=== PATIENT | female | born 1980 | race Caucasian/White ===

== ENCOUNTER 2016-12-31 12:13 | Day surgery (SDC) | payer OTHER ==
[2016-12-31] VITALS (8 sets, daily range): BP systolic 107–146; BP diastolic 74–88; PULSE 63–112; RESP 12–20; O2SAT 96–100
[~2016-12-31] VITALS: Ht 165.1 cm; Wt 112.8 kg
[2016-12-31] MEDS ORDERED: Rocuronium 10 mg/mL 5 mL Inj ONE (12:14)
[2016-12-31] MEDS ORDERED: Phenylephrine/NS 100 mCg/mL 10 mL Syringe IVPUSH ONE (12:14)
[2016-12-31] MEDS ORDERED: Glycopyrrolate 0.2 MG/ML 1mL Inj ONE (12:14)
[2016-12-31] MEDS ORDERED: fentaNYL-PF 50 mCg/mL 2 mL Inj ONE (12:14)
[2016-12-31] MEDS ORDERED: Ondansetron 2 mg/mL 2 mL Inj ONE (12:14)
[2016-12-31] MEDS ORDERED: Dexamethasone 4 mg/mL Inj ONE (12:14)
[2016-12-31] MEDS ORDERED: Propofol 10 mg/mL 20 mL Inj ONE (12:14)
[2016-12-31] MEDS ORDERED: HYDROmorphone 1 mg/mL Inj ONE (12:14)
[2016-12-31] MEDS ORDERED: Polyethylene Glycol (PEG) 17 Gm Powder PO PRN (12:55)
[2016-12-31] MEDS ORDERED: Alum-Mag Hydrox-Simeth 30 mL Suspension PO PRN (12:55)
[2016-12-31] MEDS ORDERED: HYDROcodone-APAP 5-325 mg Tablet PO PRN (12:55)
[2016-12-31] MEDS ORDERED: Ondansetron 2 mg/mL 2 mL Inj IVPUSH PRN ×3 (12:55→17:30)
--- NOTE | 2016-12-31 12:58 | PCM.HPMED ---
Subjective Date of Service Dec 31, 2016 Primary Provider: Admitting Physician: Vanessa Bullock DO Primary Care Physician: [facility]-R[facility] Roper Attending Physician: Vanessa Bullock DO Admit Status: Direct Admit Chief Complaint: RUQ Pain History of Present Illness: 36 yo WF with no particular PMH went to yesterday with abdominal pain, got lab work, that is remarkable for WBC=13.1, notmal LFT. She went back there this AM to get an abd US that showed concern for cholelithiasis, CBD widening 8 mm, thickened galbladder wall. she has no fevers or chills, she is endorsing anorexia, nausea but no vomiting. She says that she can not related pain to eating but has not eaten since midnight, had sips of water. She has never had pain like this before. She had a normal bowel movement yesterday a.m. she denies hematochezia and hematemesis At the urgent care, she has received labs on 12/30.. (Her left ear fairly unremarkable, no elevation of lipase was noted. She did have an elevated white count of 13.1 ultrasound of abdomen on 12/31 showed 8 mm of common bile duct, thickened gallbladder wall, multiple gallbladder stones, also indicated concern for acute cholecystitis. Upon arrival to the floor Vital signs signs are 36.6 heart rate 63 respirations 20 blood pressure was 136/84 oxygen saturation 99% on room air Interim patient is not experiencing much pain or fevers or chills, she is cooperative with interview and examination Review of Systems: Gen.: No recent weight gain or weight loss patient has not been having fevers and malaise Eyes: no visual disturbances or blurring vision HEENT: No nose/throat drainage, no pain in ears or throat, no hearing loss Lymph: No lymph nodes noted Cardiac: No chest pain, orthopnea, PND, palpitations , pedal edema or dyspnea on exertion Pulmonary: Denies wheezing or bringing up of sputum denies dyspnea and cough, denies left-sided chest pain GI: No anorexia nausea vomiting blood or black in the stool : no dysuria hematuria urinary frequency or decrease in urine output Musculoskeletal: Joint swelling no joint pain no new muscle aches or back pain Neuro: No syncope, seizures no loss of consciousness no new focal weakness, numbness or tingling Psychiatric: New new anxiety insomnia or depression Endocrine: No new heat or cold intolerances polyuria or polydipsia Hematology: No lymphadenopathy or easy bleeding or bruising noted skin: No new rashes, or stasis dermatitis Complete review of systems performed, pertinent positives and negatives per history of present illness and as above, all other systems reviewed and are negative. Allergies Coded Allergies: Penicillins (Verified Allergy, Intermediate, Rash, 12/31/16) amoxicillin (Verified Allergy, Mild, Rash, 12/31/16) Uncoded Allergies: Sulfa (Allergy, Intermediate, Rash,Itching,, 12/31/16) Home Medications She takes no home medications PMH None Surgical History Family History Both parents are healthy Social History Occupation: social [employer] Hx Alcohol Use: Yes ("Once in a while") Hx Substance Use: No Hx Tobacco Use: No Living Arrangement: with Family (lives in [place] with and one child) Exam Vital Signs Vital Sign - Last Date Time Temp Pulse Resp B/P Pulse Ox O2 Delivery O2 Flow Rate FiO2 12/31/16 12:21 36.6 63 20 126/84 99 Room Air Assessment & Plan This is a 36-year-old female whose BMI match his morbid obesity presenting today from urgent care as a direct admit for acute cholecystitis as noted on her abdominal ultrasound Assessment #1 acute cholecystitis, present on admission -- Started her on Invanz antibiotics -- Repeat CBC and comp, lipase and amylase are ordered as well as GGT -- Gen. surgery and GI were consulted -- MRCP is ordered -- Dr. Russ Corrigan has seen the patient reviewed the labs as well as MRCP, decided to take patient for cholecystectomy this p.m. with intraoperative cholangiogram -- Dr. López from GI was consulted, we will await the recommendations -- Morphine IV for pain control as needed -- Zofran for nausea control -- Normal saline 100 mL/h, nothing by mouth diet Assessment #2 nausea, acute present on admission -- Zofran IV when necessary Assessment #3 morbid obesity -- We will reimbursement counselor patient on the importance of lifestyle changes Assessment #4 , and bile duct dilation, present on admission -- Discussed this with Dr. Russ Corrigan who feels that she is just at the upper limit of CBD, she does not have a stone Pain Evaluation: Adequate Pain Control Resuscitation Status: CPR: Attempt Resuscitation Time spent 45 minutes Angelica Evans DO Dec 31, 2016 12:58
--- NOTE | 2016-12-31 13:52 | NUR ---
Admit to [facility] Pt arrived as direct admit to [facility] at 1215 hrs. Pt alert and oriented x 3. VSS. Lab came to draw blood. Pt taken to MRI for MRCP. Pt NPO. Awaiting surgical and GI consults and new orders. Family in room at the bedside.
[2016-12-31 13:53] LABS: Mean Corpuscular Volume 87.5 fL (81-100)
[2016-12-31 13:54] LABS: BASOPHILS % (AUTO) 0.5 % (0-3); MONOCYTES % (AUTO) 6.4 % (4-12); NEUTROPHILS % (AUTO) 59.5 % (40-74); Platelet Count 315 bil/L (150-400)
[2016-12-31 14:16] LABS: APPEARANCE,URINE HAZY (CLEAR,HAZY); COLOR,URINE DARK YELLOW (YELLOW); OCCULT BLOOD,URINE LARGE (NEGATIVE); PH,URINE 7.5 (5.0-8.0); UROBILINOGEN,URINE NORMAL (NORMAL)
--- NOTE | 2016-12-31 14:42 | DRSVH ---
PROCEDURE: MR ABDOMEN MRCP INDICATIONS: CBD stone TECHNIQUE: Coronal HASTE through the abdomen, axial 2-D FLASH in- and [id number], and breath-hold T2 FSE with fat saturation through the biliary system and pancreas. Oblique coronal and axial thin-slice HASTE, radial thick-slab HASTE centered on the extrahepatic bile ducts. Intravenous secretin: Not requested. COMPARISON: [facility] Ultrasound, US, US ABDOMEN, 12/31/2016, 9:33. FINDINGS: Image quality: Excellent. Pancreas and biliary system: Intra- and extra-hepatic biliary ducts are non dilated. Pancreas is no rmal in morphology, without adjacent soft tissue edema. Pancreatic duct is normal in caliber. Possib le pancreas divisum. Gallbladder contains multiple small calculi, as seen by ultrasound. Gallbladder wall is thickened. There is moderate surrounding edema as well as a small amount of pericholecystic f luid. Other solid organs: Liver and spleen are normal in size. No adrenal nodules. Both kidneys are norm al in size, without hydronephrosis. Nodes and vessels: No retroperitoneal or mesenteric adenopathy by size criteria. Aorta and inferior vena cava are normal in size. Bowel and peritoneum: Unenhanced bowel loops are normal in caliber. No free fluid. Lung bases: No basal pleural effusions. Heart size is normal. Bones and soft tissues: No ventral hernias. Bone marrow is of normal overall signal. IMPRESSION: 1. Cholelithiasis and cholecystitis. 2. No choledocholithiasis. 3. Findings suggestive of pancreas divisum. Dictated by: Monica Corona M.D. on 12/31/2016 at 14:38 Approved by: Monica Corona M.D. on 12/31/2016 at 14:40
[2016-12-31] MEDS: D5 0.45% NaCl + KCl 20 mEq/L 1,000 ML IV SCH ×2 (14:54→22:54)
--- NOTE | 2016-12-31 15:13 | CONS ---
[address] [address] CONSULTATION REPORT PATIENT: SHELIA JENNINGS : 1980 MR#: [id number] ADMIT: 12/31/2016 JOB ID: [id number] DATE OF SERVICE: 12/31/2016 REQUESTED BY: Angelica Evans DO REASON FOR CONSULTATION: The patient seen for decision to operate. HISTORY OF PRESENT ILLNESS: A 36-year-old female, who had onset of abdominal pain which radiates into her back, three days ago. Her pain is actually improved compared to yesterday. She went to Urgent Care yesterday. Yesterday she had a normal lipase and normal liver functions. Today, she had an abdominal ultrasound that showed gallstones. The gallbladder wall was mildly thickened. There was a positive sonographic Laboy sign and possibly common duct stones based on a common bile duct of 8 mm. She was admitted from Urgent Care and Dr. Evans asked me to see her in consultation. Dr. Evans obtained an MRCP that was normal. Subsequent to that, her liver functions and lipase came back today also normal. She has had a previous section. No other abdominal operations. She has never had similar symptoms prior to three days ago. There is no family history of gallstones. PAST MEDICAL HISTORY/ILLNESSES: Obesity. OPERATIONS: section, 11 years ago. MEDICATIONS: At home, none. ALLERGIES: 1. PENICILLINS. 2. SULFA. HABITS: Tobacco: None. Alcohol: Occasional. SOCIAL HISTORY: . She is accompanied by her , Brandon, and their son. She works at [employer]. FAMILY HISTORY: Negative for gallstones. Positive for kidney stones. REVIEW OF SYSTEMS: She denies nausea or vomiting, jaundice, acholic stools, dark urine. PHYSICAL EXAMINATION: Very pleasant, over-nourished, no distress. BMI 41. Temperature 36.6, brachial blood pressure 126/84, pulse 63, respiratory rate 20, O2 sat room air 98%. HEENT: PERRLA, EOMI no scleral icterus. Neck: No appreciable masses. Trachea midline. Lungs: Clear. Cardiac exam: Regular rhythm. No murmurs or gallops appreciated. Abdomen: Over-nourished. She has right upper quadrant tenderness. No other abdominal tenderness except for very mild left upper and left lower quadrant tenderness that really is referred to the right upper quadrant. No peritoneal signs. Extremities: No edema. Skin: Nonjaundiced. No anterior abdominal wall rashes. Neurologic exam: Appropriate affect. No obvious cranial nerve deficits. Moves all extremities. Gait not tested. LABORATORY RESULTS: White blood cell count 9.3, hematocrit is 39.3, platelet count 315,000. Electrolytes are normal. Creatinine 0.6, glucose 96. AST 13, ALT 8, alkaline phosphatase 20, total bilirubin 0.7 and lipase is 28. IMAGING DATA: Ultrasound from today: See above. MRCP from today shows cholelithiasis and cholecystitis, no choledocholithiasis and findings consistent with pancreatic divisum. IMPRESSION: Acute right upper quadrant pain consistent with acute calculous cholecystitis without evidence of choledocholithiasis or pancreatitis. I discussed options with the patient and her , I have recommended proceeding with a laparoscopic cholecystectomy and cholangiograms, possible open cholecystectomy. I discussed the natural history of gallstones. I discussed complications of gallstones untreated but also potential complications of the operation including bleeding, bile leak, bile ductal injury, and postoperative diarrhea. I discussed typical laparoscopic cholecystectomy and typical recovery. I have recommended that we proceed today. She has accepted this advice and informed consent is obtained. She had no further questions. The patient seen for decision to operate. cc: Ananya Hart MD
[2016-12-31] MEDS ORDERED: Lactated Ringer's 500 ML IV PRN (16:07)
[2016-12-31] MEDS ORDERED: Lactated Ringer's 1,000 ML IV SCH (16:07)
--- NOTE | 2016-12-31 16:07 | PCM.HPANE ---
Patient Data Date of Service: Dec 31, 2016 Surgeon Admitting Provider:Vanessa Bullock DO Attending Provider:Vanessa Bullock DO Primary Care Physician:[facility] Roper Other Provider: Reason for Visit Cholecystitis Ht/WT & BMI Height (Feet): 5 Height (Inches): 5.00 Weight (Kilograms): 112.800 Body Mass Index 41.43 Allergies Coded Allergies: Penicillins (Verified Allergy, Intermediate, Rash, 12/31/16) amoxicillin (Verified Allergy, Mild, Rash, 12/31/16) Uncoded Allergies: Sulfa (Allergy, Intermediate, Rash,Itching,, 12/31/16) Past Anesthesia History Anesthesia History: Denies:: Anesthesia Reactions, Fam Anesthesia Reaction Diabetes History Hx Diabetes?: No MRSA MRSA: No Medications Hypertension Medication: No No Active Prescriptions or Reported Meds History History of ENT Problems?: No HEENT History: Denies:: Abnormal Airway Denture Type: None Teeth Condition: Within Normal Limits Hx of Heart Problems?: No Cardiovascular History: Denies:: Hypertension Hx of Respiratory Problem?: No Respiratory History: Denies:: Asthma Hx Neurologic Problems?: No Hx of GI Problems?: No Hx of Problems?: No Female Hx: Denies:: Currently Endometriosis Pelvic Inflammatory Problems with Breasts? Hx Musculoskeletal Problems?: No Hx of Psycho/Social Problems?: No Hx Surgeries?: Yes (c section, tooth pulled ) Hx Any Other Health Problems?: Yes Other History: Positive for:: Hospitalization Denies:: Cancer Thyroid Disease History Blood Transfusions: Positive for:: Accept Blood Products? Denies:: Blood Transfusions Hx Diabetes: No Hx Alcohol Use: Yes ("Once in a while") Stop/Bang Treated for Sleep Apnea?: No Do You Have a CPAP Machine?: No S-Snoring: Do You Snore Loudly: No T-Tired: feel tired, fatigued: Yes O-Obsered: Observed not breath: No P-Blood Pressure: treated: No B- Body Mass Index > 35 kg/m2: No A- Age over 50: No N- Neck Large Circumference: No G- Gender Male: No BASSEM Total Score: 1 BASSEM Risk Assessment: Low Risk, <3 Yes Risk Assessment Category Category 1A: Patient has history of documented sleep apnea, and HAS NOT received any narcotic, sedative or anesthesia administration during this stay. Category 1B: Patient has history of documented sleep apnea, and HAS received any narcotic , sedative or anesthesia administration during this stay Category 2: Patient has SUSPECTED Obstructive Sleep Apnea, and HAS received any narcotic , sedative or anesthesia administration during this stay. Category 3: Patient has SUSPECTED Obstructive Sleep Apnea and HAS NOT received narcotic, sedative or anesthesia administration during this stay. Category 4: Outpatient in Procedural Areas with known sleep apnea or who screen positive for High Risk via the STOP/BANG questionnaire. Exam Exam Vital Signs Vital Signs Date Time Temp Pulse Resp B/P Pulse Ox O2 Delivery O2 Flow Rate FiO2 12/31/16 12:21 36.6 63 20 126/84 99 Room Air General Appearance: Alert, Oriented X3, Cooperative, No Acute Distress HEENT/AIRWAY: MP 2, Neck Movement (normal), Mouth Opening (normal) Lungs: Clear to Auscultation, Normal Air Movement Heart: Exam Unremarkable, Regular Rate/Rhythm, No Murmurs/Rubs/Gallops Meds/Labs/Diagnostics Admission Meds Current Medications Potassium Chloride/Dextrose/ Sod Cl (Dextrose 5% 0.45% NaCl + KCl 20 mEq/L) 1, 000 ml @ 100 mls/hr Q10H IV Last administered on 12/31/16t 14:54; Start at 12:54 Labs Test 12/31/16 13:33 12/31/16 13:35 12/31/16 14:07 Urine Color Dark yellow (YELLOW) Urine Appearance Hazy (CLEAR,HAZY) Urine pH 7.5 (5.0-8.0) Urine Specific [place] 1.010 (1.003-1.035) Urine Protein Negativemg/dL (NEG,TRACE) Urine Glucose (UA) Negativemg/dL (NEGATIVE) Urine Ketones Negativemg/dL (NEGATIVE) Urine Occult Blood Large (NEGATIVE) Urine Nitrite Negative (NEGATIVE) Urine Bilirubin Negative (NEGATIVE) Urine Urobilinogen Normalmg/dL (NORMAL) Urine Leukocyte Esterase Small (NEGATIVE) Urine RBC 11-50/hpf (0-2) Urine WBC 0-5/hpf (0-5) Urine Epithelial Cells Occasional/hpf (NONE-MOD) Urine Crystals None seen (NONE SEEN) Urine Bacteria Moderate/hpf (NONE-FEW) Urine Hyaline Casts None/lpf (NONE) Urine Granular Casts None seen (NONE SEEN) Urine Waxy Casts None seen (NONE SEEN) Urine Red Blood Cell Casts None seen (NONE SEEN) Urine White Blood Cell Casts None seen (NONE SEEN) Urine Mucus None seen (None Seen) Urine Trichomonas None seen (NONE SEEN) Urine Yeast None (NONE SEEN) Urinalysis Comment None Urine Culture Reflexed Indicated White Blood Count 9.3th/mm3 (3.8-10.1) Red Blood Count 4.49mil/mm3 (3.90-5.20) Hemoglobin 13.0g/dL (12.0-15.6) Hematocrit 39.3% (35.0-46.0) Mean Corpuscular Volume 87.5fL (81-100) Mean Corpuscular Hemoglobin 29.0pg (27.0-35.0) Mean Corpuscular Hemoglobin Concent 33.1% (32.0-37.0) Red Cell Distribution Width 12.5% (12.3-15.4) Platelet Count 315bil/L (150-400) Neutrophils (%) (Auto) 59.5% (40-74) Lymphocytes (%) (Auto) 29.4% (14-46) Monocytes (%) (Auto) 6.4% (4-12) Eosinophils (%) (Auto) 4.0% (0-5) Basophils (%) (Auto) 0.5% (0-3) Sodium Level 139mEq/L (134-144) Potassium Level 3.8mEq/L (3.5-5.2) Chloride Level 100mEq/L (97-108) Carbon Dioxide Level 25mmol/L (18-29) Blood Urea Nitrogen 9mg/dL (6-20) Creatinine 0.62mg/dL (0.57-1.00) Estimat Glomerular Filtration Rate 155mL/min (>59) Glucose Level 96mg/dL (60-99) Calcium Level 9.0mg/dL (8.5-10.1) Total Bilirubin 0.7mg/dL (0.0-1.2) Aspartate Amino Transf (AST/SGOT) 13U/L (0-50) Alanine Aminotransferase (ALT/SGPT) 8U/L (0-32) Alkaline Phosphatase 80U/L (25-150) Total Protein 8.0g/dL (6.4-8.4) Albumin 4.0g/dL (3.4-5.0) Lipase 28U/L (13-60) Plan Impression Patient chart reviewed, patient interviewed and anesthestic plan with risks, benefits, and alternatives discussed, and informed consent obtained. NPO per Anesth. Guidelines: Yes ASA Physical Status: ASA2 Mod Systemic Disease Anesthetic Plan: GA Bene/Risks/Altern/Consents: Yes HP Complete Prior to Induction: Yes Santos Bucio MD Dec 31, 2016 15:57
--- NOTE | 2016-12-31 16:07 | PCM.CHPMED ---
Subjective Date of Service: Dec 31, 2016 Provider requesting consult: Angelica Evans DO Primary Physician: Admitting Physician: Vanessa Bullock DO Primary Care Physician: [facility]-Ruth Roper Attending Physician: Vanessa Bullock DO Chief Complaint: Chief Complaint: Abdominal pain History of Present Illness: Gastroenterology Consult Note Gris Corrigan is a 36-year-old female with no significant past medical history who presents with worsening abdominal pain. Abdominal pain started on Friday and has progressively worsened. Initially pain was located in her epigastric region and has now radiated to her right upper quadrant. Pain is a constant dull ache and is associated with some nausea and anorexia. Patient is not specifically associated with oral intake or fatty foods. She denies any fever, chills, night sweats, headache, shortness of breath, dysuria, hematuria, diarrhea, or black tarry stools. No prior abdominal surgeries although she did have a section approximately 11 years ago. No family history of cholelithiasis. Review of Systems: Comprehensive review of systems was conducted with the patient and found to be negative except as noted above in HPI. PMH Past Medical History None Hx Any Other Health Problems?: NoHx Diabetes: No Surgical History section 11 years ago Home Medications None Allergies: Coded Allergies: Penicillins (Verified Allergy, Intermediate, Rash, 12/31/16) amoxicillin (Verified Allergy, Mild, Rash, 12/31/16) Uncoded Allergies: Sulfa (Allergy, Intermediate, Rash,Itching,, 12/31/16) Family History Family History Grandmother - diabetes and cancer (unknown type) Social History Hx Alcohol Use: Yes ("Once in a while")Hx Substance Use: NoHx Tobacco Use: No Smoking Status: Never Smoker Living Arrangement: with Family Exam Vital Signs Vital Sign - Last Date Time Temp Pulse Resp B/P Pulse Ox O2 Delivery O2 Flow Rate FiO2 12/31/16 12:21 36.6 63 20 126/84 99 Room Air General: Alert, Oriented X3, No Acute Distress Head: Normal Eyes: PERRLA, Scleral Anicteric Nose: Mucous Membr Moist/[place] Mouth: Mucous Membr Moist/[place] Chest & Lungs: Clear to auscultation & percussion Cardiovascular: Regular Rate/Rhythm, No Murmurs/Rubs/Gallops Abdomen: Tender (greatest in the right upper quadrant), Non-distended, No hepatosplenomegaly, Normoactive bowel tones, Obese Musculoskeletal: Unremarkable Extremities: No Edema Neurological: Grossly Neurologically Intact, Cranial Nerves 2-12 Intact Lab and Diagnostics Result Diagram: 12/31/16 1335 X-Rays, CTs and MRIs US ABDOMEN IMPRESSION: 8mm common bile duct caliber, gallbladder wall is abnormally thickened and tenderness. Multiple stones are seen within the gallbladder lumen. Intrahepatic biliary distention is not found, however. Given the constellation of findings there is concern for presence of acute cholecystitis and even possibly a common duct calculus. Surgical consultation may be warranted at this time depending on the clinical status. If clinically desired additional assessment utilizing MR cholangiogram could be performed. Dictated by: Yg Wilcox M.D. on 12/31/2016 at 10:11 Approved by: Yg Wilcox M.D. on 12/31/2016 at 10:13 Assessment & Plan Assessment Gris Corrigan is a 36-year-old female with no significant past medical history who presents with worsening abdominal pain. Abdominal ultrasound showed sonographic Laboy sign and possible common duct stones. Subsequently, MRCP was ordered by Dr. Evans which showed no stones in the common bile duct. Current plan is for patient to go to the OR today for cholecystectomy by Dr. Russ Corrigan. No further recommendations at this time. Thank you for involving us in the patient's care. GI will sign off at this time. If additional questions or concerns please feel be to contact. Problems: Pain Evaluation: Adequate Pain Control Resuscitation Status: CPR: Attempt Resuscitation ILANA GARNER DO Dec 31, 2016 14:09
[2016-12-31] MEDS ORDERED: Lactated Ringer's 1,000 ML IV ONE (16:09)
[2016-12-31] MEDS ORDERED: Labetalol 5 mg/mL 4 mL Inj IV PRN (16:10)
[2016-12-31] MEDS ORDERED: fentaNYL-PF 50 mCg/mL 2 mL Inj IVPUSH PRN (16:10)
[2016-12-31] MEDS ORDERED: EPHEDrine Sulfate 50 mg/mL Inj IVPUSH PRN (16:10)
[2016-12-31] MEDS ORDERED: hydrALAZINE 20 mg/mL Inj IVPUSH PRN (16:10)
[2016-12-31] MEDS ORDERED: MetoCLOpramide 5 mg/mL 2 mL Inj IVPUSH PRN ×2 (16:10→17:30)
[2016-12-31] MEDS ORDERED: Phenylephrine 10,000 mCg/mL Inj IVPUSH PRN (16:10)
[2016-12-31] MEDS ORDERED: Atropine 0.4 mg/mL Inj IVPUSH PRN (16:10)
[2016-12-31] MEDS ORDERED: Dexamethasone 4 mg/mL Inj IVPUSH PRN (16:10)
[2016-12-31] MEDS ORDERED: HYDROmorphone 1 mg/mL Inj IVPUSH PRN (16:10)
--- NOTE | 2016-12-31 16:13 | NUR ---
Pt off unit Pt to O.R. at 1550 hrs.
[2016-12-31] MEDS ORDERED: Bupivacaine-MPF 0.5% 30 mL Inj INFILTRATE ONE (16:15)
[2016-12-31] MEDS: Ertapenem Inj 1,000 MG in 0.9% Sodium Chloride 50 ML IV SCH ×2 (16:30→18:50)
[2016-12-31] MEDS: Dextrose 5% Lactated Ringer's 1,000 ML IV SCH (17:29)
[2016-12-31] MEDS ORDERED: oxyCODONE-Acetamin 5-325 mg Tablet PO PRN (17:30)
[2016-12-31] MEDS ORDERED: HYDROmorphone 0.5 mg/0.5 mL iSecure Syringe IVPUSH PRN (17:30)
--- NOTE | 2016-12-31 17:38 | PCM.ANEP1 ---
Post Anesthesia PACU Phase 1 Assessment Date of Service: Dec 31, 2016 Vital Signs 36.4 147/86 107 29 92% RA Anesthetic Administered: GA Level of Alertness: Sleepy, easy to arouse VARGAS's with Equal Strength: Yes Pain: No Nausea or Vomiting: No CV Function & Hydration Stable: Yes Airway Device: Oxygen Delivery: Room Air Lungs: Clear to Auscultation, Normal Air Movement Dermatome Level: Full Sensation PACU Phase 2 Assessment Complications: No Follow up Care: N/A Patient Instructions Provided: Yes Santos Bucio MD Dec 31, 2016 17:38
--- NOTE | 2016-12-31 18:31 | OP ---
[address] [address] OPERATIVE REPORT PATIENT: SHELIA JENNINGS : 1980 MR#: [id number] ADMIT: 12/31/2016 JOB ID: [id number] DATE OF SURGERY: 12/31/2016 SURGEON: Russ Jennings MD E BUSINESS MANAGER: Brayan Parkinson PA-C PREOPERATIVE DIAGNOSIS(ES): Acute calculous cholecystitis. POSTOPERATIVE DIAGNOSIS(ES): Acute calculous cholecystitis. PROCEDURE: 1. Laparoscopic cholecystectomy and cholangiograms. 2. Intraoperative fluoroscopy with interpretation. INDICATIONS: A 36-year-old woman with a four-day history of abdominal pain. She was found clinically and by imaging studies to have acute calculous cholecystitis. After discussing options with the patient, it was elected to proceed with a laparoscopic cholecystectomy and cholangiograms. FINDINGS: She had acute calculous cholecystitis. There was a stone impacting the cystic duct just below the gallbladder. Cholangiograms were normal. There was no filling defects. No evidence of injury to the bile ducts. Free flow into the duodenum and the common hepatic duct and intrahepatic ducts appeared normal. DESCRIPTION OF PROCEDURE: At the beginning and end of the operation, the SCOAP checklist was completed. General endotracheal anesthetic was induced. She received preoperative antibiotics. She had on pneumatic hose. Using ChloraPrep, she was prepped and draped in usual fashion. All trocar sites were infiltrated with 0.5% plain bupivacaine. An infraumbilical incision was made. The abdominal cavity was entered. A cannula inserted. The abdomen insufflated with CO2. Accessory 5 mm ports were placed under direct visualization in the upper midline and two in the right upper quadrant. The gallbladder was distended but I could elevate it, but very early on with a retractor, the gallbladder was entered and then bile drained out but no stones. Then, the fundus was retracted superiorly and then the infundibulum inferiorly and laterally. With a combination of blunt dissection and using the cautery, the triangle of Calot was dissected, identifying the artery and the cystic duct. A clip could be appreciated and there was a stone right in the cystic duct just below the gallbladder. I was able to place a clip just below that and then do cholangiograms with results as stated above. The cholangiocatheter was removed and two clips were placed proximally in the cystic duct and it was divided. The cystic artery was divided after placing one clip distally and two clips proximally. The gallbladder was dissected away from the liver using cautery. After completing the dissection, it was placed into a specimen bag. The clips on the cystic duct were secure and on the artery were also secure. The subhepatic and right subphrenic spaces were irrigated with saline and aspirated. The cystic duct and artery were reinspected and clips were secure without evidence of bleeding or bile leak. The specimen bag was removed through the umbilical port. Trocars were removed without evidence of bleeding. The umbilical fascial incision was closed with a [id number] suture of 0-Vicryl. The subcutaneous space was irrigated with saline. Skin incisions were closed with subcuticular 4-0 Vicryl. Steri-Strips and Band-Aids were applied. Estimated blood loss 15 cc. There are no apparent complications. The final sponge, needle and instrument counts were announced as correct and the patient was returned to recovery room in stable condition. Critical assistance providing laparoscopic visualization and retraction was provided by Ramiro Parkinson PA-C.
--- NOTE | 2016-12-31 18:34 | NUR ---
Return to [facility] Pt returned from PACU to [facility] at 181. Pt sleepy but oriented x 3. No c/o pain. PIV asymptomatic and patent. VSS. Gave pt ice chips and water. She is tolerating this well. Pt c/o mild itching around her nose but then she fell asleep. Will pass this information onto NOC shift RN Care continues.
[2016-12-31] MEDS ORDERED: 0.9% Sodium Chloride 250 ML ONE (18:44)
--- NOTE | 2016-12-31 18:45 | DRSVH ---
PROCEDURE: X-RAY OPERATIVE CHOLANGIOGRAM ([id number]) INDICATIONS: CHOLECYSTITIS COMPARISON: None. FINDINGS: Biliary ducts: The surgeon injected contrast into the biliary ducts after cannulation of the cystic duct . The visualized intra- and extrahepatic bile ducts are normal in caliber, without strictures. No intraluminal filling defects to suggest retained ductal stones or sludge are seen on this single C -arm film. Delayed. Duodenum: Contrast is seen only in the ducts. Is not seen spilling into the duodenum on this film. IMPRESSION: Film shows no abnormality however spillage into the duodenum is not documented on this fi lm. Dictated by: Lupillo Crocker M.D. on 12/31/2016 at 18:42 Approved by: Lupillo Crocker M.D. on 12/31/2016 at 18:43
[2016-12-31] MEDS: Famotidine Inj 20 MG in IV Premix 1 EACH IV SCH (21:05)
[2017-01-01 00:05] VITALS: BP 115/70; PULSE 58; RESP 20; O2SAT 95
--- NOTE | 2017-01-01 01:35 | NUR ---
Drowsy Pt appears drowsy at start of shift, and child at bedside. Pt states no pain, some itchiness, and slight nausea. PRN benadryl and sofran given with good result. Pt ambulates to restroom SBA. No CP or SOB. 4X lap sites with bandaids CDI. IV infusing D5 1/2NS with 20K at 100 ml/h. Care continues
[2017-01-01] MEDS: Dextrose 5% Lactated Ringer's 1,000 ML IV SCH ×2 (03:29→08:41)
[2017-01-01 04:55] VITALS: BP 100/65; PULSE 79; RESP 20; O2SAT 97
[2017-01-01] MEDS ORDERED: HYDR-4003 PO (07:19)
[2017-01-01] MEDS ORDERED: POLY17PO6 PO (07:19)
[2017-01-01] MEDS: Famotidine Inj 20 MG in IV Premix 1 EACH IV SCH (08:30)
--- NOTE | 2017-01-01 08:33 | PCM.DISURG ---
Surgical Discharge Instruction Date of Service Jan 01, 2017 Dates of Hospitalization Date of Hospital Admission Dec 31, 2016 at 12:13 Providers Admitting Physician: Angelica Evans DO Primary Care Physician: Lorena Rendon-Ruth Roper Attending Physician: Angelica Evans DO Discharge Diagnosis Discharge Diagnosis Acute calculous cholecystitis Post Operative diagnosis Same Diet Discharge Diet: No restrictions Activity Discharge Activity-General: Try not to overdue, Be up and about, Balance rest and activity, No driving while taking narcotic Dressing and Incisional Care Dressing Care: Keep dressing clean, dry & intact, Allow Steri Stripes to fall off, Remove outer dressing after 24 hrs Hygiene: May shower after (removing outer dressings.), DO NOT soak incision under water, NO bathtub, hot tub or whirlpool Follow Up Plan Mid-level Provider (F9): Karolina Gonzalez PAC Follow-up appointment: Weeks (2-3) Brayan Parkinson PA-C Jan 01, 2017 08:33
[2017-01-01] MEDS: D5 0.45% NaCl + KCl 20 mEq/L 1,000 ML IV SCH (08:41)
--- NOTE | 2017-01-01 09:25 | PCM.DIMED ---
Discharge Instructions Date of Service Jan 01, 2017 Dates of Hospitalization Dec 31, 2016 at 12:13 Discharge Diagnosis Discharge Diagnosis Acute cholecystits Medication Instructions Additional med instructions Please take pain medication as prescribed, do not drive if you are taking narcotics. Activity Discharge Activity: Other (low fat diet) Call your provider Call your provider for: Fever or Chills, Shortness of breath, Bleeding, Chest pain, Vomitting, Excessive diarrhea, Weakness (unilateral), Other Patient Instructions Follow-up plan Activity Discharge Activity-General: Try not to overdue, Be up and about, Balance rest and activity, No driving while taking narcotic Dressing and Incisional Care Dressing Care: Keep dressing clean, dry & intact, Allow Steri Stripes to fall off, Remove outer dressing after 24 hrs Hygiene: May shower after (removing outer dressings.), DO NOT soak incision under water, NO bathtub, hot tub or whirlpool Please set up this following appt for patient. Follow Up Plan Mid-level Provider (F9): Karolina Gonzalez Follow-up appointment: Weeks (2-3) Follow up with PCP in 3-4 wees after discharge Mid-level Provider (F9): Karolina Gonzalez Aruna DO Jan 01, 2017 09:25
--- NOTE | 2017-01-01 09:27 | PCM.DC.MED ---
Discharge Summary Date of Service Jan 01, 2017 Dates of Hospitalization Date of Hospital Admission Dec 31, 2016 at 12:13 Date of Discharge: Dec 31, 2016 Providers: Admitting Physician: Angelica Bahena DO [facility] Attending Physician: Angelica Bahena DO Diagnosis at Time of Discharge Diagnosis at Time of Discharge Acute cholecystits Consultations GI, General Surgery Procedures XRay, CTs & MRIs PROCEDURE: US ABDOMEN INDICATIONS: RUQ PAIN TECHNIQUE: Real-time scanning was performed of the abdominal and retroperitoneal organs, with image documentation. COMPARISON: None. IMPRESSION: 8mm common bile duct caliber, gallbladder wall is abnormally thickened and tenderness. Multiple stones are seen within the gallbladder lumen. Intrahepatic biliary distention is not found, however. Given the constellation of findings there is concern for presence of acute cholecystitis and even possibly a common duct calculus. Surgical consultation may be warranted at this time depending on the clinical status. If clinically desired additional assessment utilizing MR cholangiogram could be performed. Dictated by: Yg Wilcox M.D. on 12/31/2016 at 10:11 Approved by: Yg Wilcox M.D. on 12/31/2016 at 10:13 Other Diagnostics PROCEDURE: MR ABDOMEN MRCP INDICATIONS: CBD stone IMPRESSION: 1. Cholelithiasis and cholecystitis. 2. No choledocholithiasis. 3. Findings suggestive of pancreas divisum. Dictated by: Monica Corona M.D. on 12/31/2016 at 14:38 Approved by: Monica Corona M.D. on 12/31/2016 at 14:40 NDICATIONS: CHOLECYSTITIS COMPARISON: None. FINDINGS: Biliary ducts: The surgeon injected contrast into the biliary ducts after cannulation of the cystic duct . The visualized intra- and extrahepatic bile ducts are normal in caliber, without strictures. No intraluminal filling defects to suggest retained ductal stones or sludge are seen on this single C- arm film. Delayed. Duodenum: Contrast is seen only in the ducts. Is not seen spilling into the duodenum on this film. IMPRESSION: Film shows no abnormality however spillage into the duodenum is not documented on this film. Dictated by: Lupillo Crocker M.D. on 12/31/2016 at 18:42 Approved by: Lupillo Corcker M.D. on 12/31/2016 at 18:43 Brief History 36 yo WF with no particular PMH went to yesterday with abdominal pain, got lab work, that is remarkable for WBC=13.1, notmal LFT. She went back there this AM to get an abd US that showed concern for cholelithiasis, CBD widening 8 mm, thickened galbladder wall. she has no fevers or chills, she is endorsing anorexia, nausea but no vomiting. She says that she can not related pain to eating but has not eaten since midnight, had sips of water. She has never had pain like this before. She had a normal bowel movement yesterday a.m. she denies hematochezia and hematemesis At the urgent care, she has received labs on 12/30.. (Her left ear fairly unremarkable, no elevation of lipase was noted. She did have an elevated white count of 13.1 ultrasound of abdomen on 12/31 showed 8 mm of common bile duct, thickened gallbladder wall, multiple gallbladder stones, also indicated concern for acute cholecystitis. Upon arrival to the floor Vital signs signs are 36.6 heart rate 63 respirations 20 blood pressure was 136/84 oxygen saturation 99% on room air Interim patient is not experiencing much pain or fevers or chills, she is cooperative with interview and examination Hospital Course This is a 36-year-old female whose BMI match his morbid obesity presenting today from urgent care as a direct admit for acute cholecystitis as noted on her abdominal ultrasound Assessment #1 acute cholecystitis, resolved -- She received one dose of Invanz antibiotics on 12/31 -- 12/31 Repeat CBC and comp, lipase and amylase are ordered as well as GGT: WNL -- Gen. surgery and GI were consulted -- MRCP is ordered, showed no concern for CBD stone, or pancreatitis -- Dr. Russ Corrigan has seen the patient reviewed the labs as well as MRCP, decided to take patient for cholecystectomy 12/31 with intraoperative cholangiogram. Patient is POD #1, doing well, producing flatus, no bowel movement yet, tolerating normal diet. -- Dr. López from GI was consulted, appreciated the time and recommendations. They agreed with the plan for surgery Assessment #2 nausea, acute present on admission resolved -- Zofran IV when necessary was given Assessment #3 morbid obesity -- She is counseled on low fat diet Assessment #4 , Common bile duct dilation, present on admission -- Discussed this with Dr. Russ Corrigan who feels that she is just at the upper limit of common bile duct , she does not have a stone -- Intraoperative cholagiogram showed no CBD stone Assessment #5 hematuria, present on admission: -- Patient states that she has a Mirena for control, she occasionally spots because of that. She recalls seeing no nathan blood at the time of collection -- That patient's hematuria could be a result of the spotting, we recommend that PCP monitors on an occasional basis and rule out other etiologies. -- Exam Vital Signs (Last) Date Time Temp Pulse Resp B/P Pulse Ox O2 Delivery O2 Flow Rate FiO2 01/01/17 04:55 36.6 79 20 100/65 97 Room Air 12/31/16 17:57 2 Exam General: NAD HEENT: NCAT Heart: RRR, no s3/s4 murmurs Lungs CTA, no crackles or wheezes Abd: Mild Tenderness over RUQ, RLQ, normal bowel sounds ExT: Neg for swelling Neuro: No focal deficits Psych: Mildly anxious Neck: Trachea central, neg for JVD Test 12/31/16 13:33 12/31/16 13:35 12/31/16 14:07 01/01/17 05:25 Urine Color Dark yellow (YELLOW) Urine Appearance Hazy (CLEAR,HAZY) Urine pH 7.5 (5.0-8.0) Urine Specific [place] 1.010 (1.003-1.035) Urine Protein Negativemg/dL (NEG,TRACE) Urine Glucose (UA) Negativemg/dL (NEGATIVE) Urine Ketones Negativemg/dL (NEGATIVE) Urine Occult Blood Large (NEGATIVE) Urine Nitrite Negative (NEGATIVE) Urine Bilirubin Negative (NEGATIVE) Urine Urobilinogen Normalmg/dL (NORMAL) Urine Leukocyte Esterase Small (NEGATIVE) Urine RBC 11-50/hpf (0-2) Urine WBC 0-5/hpf (0-5) Urine Epithelial Cells Occasional/hpf (NONE-MOD) Urine Crystals None seen (NONE SEEN) Urine Bacteria Moderate/hpf (NONE-FEW) Urine Hyaline Casts None/lpf (NONE) Urine Granular Casts None seen (NONE SEEN) Urine Waxy Casts None seen (NONE SEEN) Urine Red Blood Cell Casts None seen (NONE SEEN) Urine White Blood Cell Casts None seen (NONE SEEN) Urine Mucus None seen (None Seen) Urine Trichomonas None seen (NONE SEEN) Urine Yeast None (NONE SEEN) Urinalysis Comment None Urine Culture Reflexed Indicated White Blood Count 9.3th/mm3 (3.8-10.1) Red Blood Count 4.49mil/mm3 (3.90-5.20) Hemoglobin 13.0g/dL (12.0-15.6) Hematocrit 39.3% (35.0-46.0) Mean Corpuscular Volume 87.5fL (81-100) Mean Corpuscular Hemoglobin 29.0pg (27.0-35.0) Mean Corpuscular Hemoglobin Concent 33.1% (32.0-37.0) Red Cell Distribution Width 12.5% (12.3-15.4) Platelet Count 315bil/L (150-400) Neutrophils (%) (Auto) 59.5% (40-74) Lymphocytes (%) (Auto) 29.4% (14-46) Monocytes (%) (Auto) 6.4% (4-12) Eosinophils (%) (Auto) 4.0% (0-5) Basophils (%) (Auto) 0.5% (0-3) Sodium Level 139mEq/L (134-144) Potassium Level 3.8mEq/L (3.5-5.2) Chloride Level 100mEq/L (97-108) Carbon Dioxide Level 25mmol/L (18-29) Blood Urea Nitrogen 9mg/dL (6-20) Creatinine 0.62mg/dL (0.57-1.00) Estimat Glomerular Filtration Rate 155mL/min (>59) Glucose Level 96mg/dL (60-99) Calcium Level 9.0mg/dL (8.5-10.1) Total Bilirubin 0.7mg/dL (0.0-1.2) Aspartate Amino Transf (AST/SGOT) 13U/L (0-50) Alanine Aminotransferase (ALT/SGPT) 8U/L (0-32) Alkaline Phosphatase 80U/L (25-150) Total Protein 8.0g/dL (6.4-8.4) Albumin 4.0g/dL (3.4-5.0) Lipase 28U/L (13-60) Gamma Glutamyl Transpeptidase 23IU/L (0-60) Triglycerides Level 72mg/dL (0-149) Cholesterol Level 143mg/dL (100-199) LDL Cholesterol, Calculated 90.600mg/dL (0-99) VLDL Cholesterol 14.400mg/dL HDL Cholesterol 38mg/dL (>39) Cholesterol/HDL Ratio 3.76 (0.0-4.4) Discharge Medications As needed Hydrocodone-Acetaminophen 5-325 mg (Hydrocodone-Acetaminophen 5-325 mg) 1 Each Tablet 1 TABLET PO Q4H PRN PRN For Moderate Pain Prescribed by: ANGELICA BAHENA DO Polyethylene Glycol 3350 (Miralax) 17 Gm Powd.pack 17 GM PO DAILY PRN PRN For Constipation Prescribed by: ANGELICA BAHENA, DO Additional med instructions Please take pain medication as prescribed, do not drive if you are taking narcotics. Followup Plan Follow-up plan Activity Discharge Activity-General: Try not to overdue, Be up and about, Balance rest and activity, No driving while taking narcotic Dressing and Incisional Care Dressing Care: Keep dressing clean, dry & intact, Allow Steri Stripes to fall off, Remove outer dressing after 24 hrs Hygiene: May shower after (removing outer dressings.), DO NOT soak incision under water, NO bathtub, hot tub or whirlpool Please set up this following appt for patient. Follow Up Plan Mid-level Provider (F9): Karolina Gonzalez PAC Follow-up appointment: Weeks (2-3) Follow up with PCP in 3-4 wees after discharge Discharge Activity: Other (low fat diet) Mid-level Provider: Karolina Gonzalez PAC Time spent 35 min Angelica Bahena DO Jan 01, 2017 09:27
--- NOTE | 2017-01-01 11:01 | PROG NOTE ---
[address] [address] PROGRESS NOTE PATIENT: SHELIA JENNINGS : 1980 MR#: [id number] ADMIT: 12/31/2016 JOB ID: [id number] DATE: 01/01/2017 SUBJECTIVE: The patient is seen postoperative day one, following emergent laparoscopic cholecystectomy and cholangiograms. She is complaining of incisional pain, as expected, and also weakness. She denies nausea or vomiting. PHYSICAL EXAMINATION: Alert, in no distress. Temperature 36.6, brachial blood pressure 100 systolic, pulse 79, respiratory rate 20, O2 sat room air 97%. Abdomen is flat. Band-Aids are dry. IMPRESSION: Doing well. PLAN: She can be discharged to home today. I have pointed out to Dr. Vinod Farfan, from Radiology, that the official report of the cholangiogram was inaccurate, that contrast is seen on the films into the duodenum, and he is making that correction. Ramiro Parkinson PA-C will arrange followup in the Surgical Clinic. There are no physical or dietary restrictions based on the operation, but her body may limit both. The patient may shower today.
--- NOTE | 2017-01-01 11:49 | NUR ---
Discharge Pt DC home via private vehicle with , all belongings taken with her. Pain well controlled with [place] and pt tolerated well with no dizziness upon standing. Abdominal incisions are CDI and wound care instructions given. Pt will call to schedule her own f/u appointments.
--- NOTE | 2017-01-01 11:53 | NUR ---
Social Work- Brief Note/Discharge/Multidisciplinary Rounds Data: EMR Reviewed. Pt is on day 1 of hospitalization. Pt discussed in rounds. Pt was admitted for procedure and should be SDC, no social work needs identified. Pt's insurance is [employer]. Pt's PCP is GUY in [facility]. CATHI met with pt at bedside prior to discharge regarding discharge plan. Pt resides in [place] with her family. Pt is independent with self-care and ADLs at home. Pt's NOK is Brandon Neal, spouse,[phone]. CATHI requested that SCOREBOARD OPERATOR update her NOK with Registration. Registration updated. Pt declined information regarding DPOA. Pt to discharge home with her via POV. No discharge needs. Assessment: Pt who is independent at baseline. Plan: Pt to discharge home with her via POV. No discharge needs. Dorene Fagan SCOREBOARD OPERATOR
--- NOTE | 2017-01-01 15:57 | PCM.PNSURG ---
Subjective Date of Service: Jan 01, 2017 Date of Service: Jan 01, 2017 Visit Information: Reason for Visit Cholecystitis Surgery/Surgery Date Post-Op Day # 1 s/p lap david Date of Admission: Hospital Day # Subjective: Patient a little weak but o/w has no complaints. Tolerating a diet. Minimal abdominal pain. Denies f/c. Postop General: No Shortness of Breath, No Chest Pain Gastrointestinal: Tolerating Oral Feedings, No N/V Pain Management: PO Postop Activity: Ambulating Independently Objective Objective Pleasant overnourished female in no apparent distress Intake and Output- Last 8 Hour 01/01/17 Cumulative From/Thru 07:00 12/31/16 12:26 - 12/31/16 21:21 Intake Total 790 ml Output Total 0 ml Balance 790 ml Intake Oral 0 ml IV Total 790 ml Output Urine Total 0 ml General: Alert, Cooperative, No Acute Distress Lungs: Clear to Auscultation Heart: Regular Rate/Rhythm Abdomen: Soft, Appropriately tender, Non-distended, Normoactive bowel tones Catheters: None Result Diagram: 12/31/16 1335 12/31/16 1335 Assessment & Plan Impression satisfactory post op course s/p lap david. Problems: Plan - may discharge to home with f/u in [facility] surgery clinic in 2-3 weeks. - reg - percocet for pain - remove outer dressings in 24 h then may shower - balance rest and activity Resuscitation Status: CPR: Attempt Resuscitation Brayan Parkinson PA-C Jan 01, 2017 15:57
--- NOTE | 2017-01-01 16:05 | PCM.DC.SUR ---
Discharge Summary Date of Service: Jan 01, 2017 Date of Hospital Admission: Dec 31, 2016 Date of Operation(s): Dec 31, 2016 Date of Discharge: Jan 01, 2017 at 11:49 Diagnosis at Time of Discharge Acute cholecystitis Problems: Operation Laparoscopic cholecystectomy with intraoperative cholangiogram Brief History and Physical: 36 yo WF with no particular PMH went to yesterday with abdominal pain, got lab work, that is remarkable for WBC=13.1, notmal LFT. She went back there this AM to get an abd US that showed concern for cholelithiasis, CBD widening 8 mm, thickened galbladder wall. she has no fevers or chills, she is endorsing anorexia, nausea but no vomiting. She says that she can not related pain to eating but has not eaten since midnight, had sips of water. She has never had pain like this before. She had a normal bowel movement yesterday a.m. she denies hematochezia and hematemesis At the urgent care, she has received labs on 12/30.. (Her left ear fairly unremarkable, no elevation of lipase was noted. She did have an elevated white count of 13.1 ultrasound of abdomen on 12/31 showed 8 mm of common bile duct, thickened gallbladder wall, multiple gallbladder stones, also indicated concern for acute cholecystitis. Upon arrival to the floor Vital signs signs are 36.6 heart rate 63 respirations 20 blood pressure was 136/84 oxygen saturation 99% on room air Interim patient is not experiencing much pain or fevers or chills, she is cooperative with interview and examination Physical Exam Pleasant mildly overnourished female in no apparent distress Chest: Clear to auscultation Cor: regular rate and rhythm Abd: Soft, appropriately tender to palpation, Normoactive bowel sounds. Mildly protuberant without evidence of distention. Surgical incisions x 4 without erythema and well approximated with overlying steristrips. Ext: no edema Consultants: None Hospital Course: Patient was seen in the emergency room and found to have evidence of cholecystitis. She was then taken to the operating room where a laparoscopic cholecystectomy and cholangiogram were performed. She tolerated the procedure well and was then transferred to her hospital room where she remained overnight. On postoperative day 1, she was found to be comfortable, tolerating a diet and able to ambulate. She was then discharged to home in good condition. Pathology: Pending Disposition: home in stable condition Follow-up Plan: follow up in general surgery [facility] clinic in 2-3 weeks. Hydrocodone-Acetaminophen 5-325 mg (Hydrocodone-Acetaminophen 5-325 mg) 1 Each Tablet 1 TABLET PO Q4H PRN PRN For Moderate Pain Polyethylene Glycol 3350 (Miralax) 17 Gm Powd.pack 17 GM PO DAILY PRN PRN For Constipation copies to: Critical access hospital Brayan Parkinson PA-C Jan 01, 2017 16:05
--- NOTE | 2017-01-02 11:36 | PATH ---
SURGICAL PATHOLOGY Attending Physician:Reanna Srinivasan CASE STATUS: Signed Out PATIENT NAME: SHELIA JENNINGS PID: [id number] : 1980 DATE COLLECTED:12/31/2016 00:00 SPECIMEN: Gallbladder CLINICAL HISTORY: CHOLECYSTITIS 1). GALLBLADDER FINAL DIAGNOSIS: 1.GALLBLADDER: CHOLELITHIASIS AND CHRONIC ACTIVE CHOLECYSTITIS. NO EVIDENCE OF MALIGNANCY. ICD10 K80.66 GROSS DESCRIPTION: The specimen is received in one formalin filled container labeled with the patient's name, sublabeled "gallbladder" and consists of a slightly opened 9.5 x 5.0 x 2.5 CM gallbladder. The serosa is smooth. The wall is 0.2-0.5 CM in thickness. The mucosa is a dark red in color. The lumen contains a green-brown mucoid material and approximately 15-20 yellow cobblestone calculi which range in size from 0.2-0.5 CM in greatest dimension. 5 field representative sections are submitted in one cassette. 01/01/2017DC MICRO DESCRIPTION: See diagnosis. ICD-9 CODES: CPT CODES: 1: 92821 Electronically Signed Out Ananya Maynard MD [facility] [address], [place] [address] Technical component performed at [facility], [facility] [address], [address]
== END 2017-01-01 11:49 | disposition home or self-care (01) ==
LOC: OSC 12:13 → SAS 12:13 → OSC 12:13 → UNDOADMIN 12:13 → UNDODISIN 01-01 11:49 → SAS 01-01 11:49 → EDSTATUS 01-01 14:40
PROVIDERS: ATTEND Neuromusculoskeletal Medicine & OMM
DX: K80.10 Calculus of gallbladder with chronic cholecystitis without obstruction (principal); E66.01 Morbid (severe) obesity due to excess calories; Z68.41 Body mass index [BMI] 40.0-44.9, adult
CPT/HCPCS: 36415; 47563; 74181; 74300; 80053; 80061; 81000; 82977; 83520; 83690; 85025; 87086; 88304; 94640; G0463; J1100; J1170; J1200; J1335; J2250; J2370; J2405; J3010; J3490; J7050; J7120; Q9967